=== PATIENT | female | born 1940 | race Caucasian/White ===

== ENCOUNTER 2017-04-28 15:42 | Emergency (ER) | payer OTHER, MEDICARE ==
[~2017-04-28] VITALS: Ht 149.9 cm; Wt 77.3 kg
[~2017-04-28 15:42] MED LIST: ADVAIR HFA120 INHALA IH; ALBUTEROL17 GM IH; ALDACTONE50 MG PO; ALEVE PM CAPLE1 EACH PO; ALPRAZOLAM ER1 MG PO; ALPRAZOLAM1 MG PO; ASPIRIN325 MG PO; ATIVAN1 MG PO; ATORVASTATIN CA20 MG PO; Aldactone PO; BIOFREEZE TP; CEFDINIR300 MG PO; CEFTIN500 MG PO; CHLORDIAZEPOXI1 EACH PO; DUONEB3 ML IH; ECOTRIN325 MG PO; EMS NITROSTAT0.4 M1 SL; FUROSEMIDE40 MG PO; HYDROCHLOROTHIA25 MG PO; HYDROCODON-ACE1 EAC4 PO; HYDROCODON-ACE1 EAC5 PO; IMDUR30 MG PO; IMDUR60 MG PO; ISOSORBIDE MONO30 MG PO; K-DUR20 MEQ PO; KEFLEX500 MG PO; LASIX40 MG PO; LIPITOR40 MG PO; LO-DOSE ASPIRIN81 M2 PO; LOPRESSOR50 MG PO; LOPROX 0.77% CR30 GM TD; LOPROX 0.77% CR30 GM TP; LOTRISONE15 GM TP; METOLAZONE5 MG PO; METOPROLOL TART50 MG PO; MICRO-K,K-DUR,10 MEQ PO; MUCINEX1200 MG PO; NEOSPORIN ANT70.8 GM TP; NIFEDICAL XL30 MG PO; NIFEDIPINE ER30 MG PO; NITROFURANTOIN100 MG PO; PAROXETINE HCL20 MG PO; PREDNISONE10 M1 PO; PREDNISONE50 MG PO; PRILOSEC20.6 MG PO; PROVENTIL,2.5 MG/0.5 AEROSOL; PROVENTIL,2.5 MG/3 M IH; SAVELLA50 MG PO; SIMVASTATIN40 M1 PO; SIMVASTATIN40 MG PO; SPIRIVA RESPIMAT4 GM IH; SPIRIVA1 INHALATI IH; SYMBICORT60 INHALAT IH; SYSTANE BALANCE10 ML IO; TRAMADOL HCL50 MG PO; VENTOLIN HFA18 GM IH; VITAMIN D400 UNI4 PO; ZAROXOLYN,DIULO5 MG PO; ZESTRIL,PRINIVI40 MG PO; ZITHROMAX Z-PA250 MG PO; ZITHROMAX500 MG PO; [UNRECOGNIZED DRUG - OTHER] TP; [UNRECOGNIZED DRUG - REMARK] PO
[2017-04-28 16:27] LABS: HEMATOCRIT 32.2 % (36.0-46.0); MCH 30.6 PG (29.0-34.0); MCHC 33.5 G/DL (30.0-36.0); MCV 91.2 FL (83-99); MEAN PLAT.VOLUME 9.9 uM^3 (9.5-12.4); PLATELET COUNT 248 K/uL (156-360); RBC DIS.WIDTH-CV 12.6 % (11.8-14.6); RBC DIS.WIDTH-SD 41.8 % (39-53); RED BLOOD COUNT 3.53 M/uL (3.80-5.20); WHITE BLOOD COUNT 11.4 K/uL (4.1-10.2)
[2017-04-28 16:32] LABS: VENOUS PCO2 54 mm Hg (41-51)
[2017-04-28 16:33] LABS: CARBON DIOXIDE (BICARBONATE) > 40.0 MEQ/L (20-31)
[2017-04-28 16:40] LABS: CHLORIDE 93 mEq/L (99-109); POTASSIUM 2.5 mEq/L (3.7-5.4); SODIUM 139 mEq/L (136-147)
[2017-04-28 16:42] LABS: GLUCOSE 124 mg/dL (70-99)
[2017-04-28 16:43] LABS: ANION GAP 11 MEQ/L (2-14)
[2017-04-28 16:46] LABS: GFR ESTIMATE (CALCULATED) 57 mL/min/; UREA NITROGEN (BUN) 13 mg/dL (9-23)
[2017-04-28 16:52] LABS: TROP-I INTERPRETATION NEGATIVE; TROPONIN-I 0.04 ng/mL (0.0-0.30)
[2017-04-28 20:44] VITALS: BP 149/78
== END 2017-04-28 20:45 | disposition home or self-care (01) ==
LOC: EME 15:42
PROVIDERS: Emergency Medicine
DX: R60.0 Localized edema (principal); M79.604 Pain in right leg; M79.605 Pain in left leg; I10 Essential (primary) hypertension; E78.5 Hyperlipidemia, unspecified; J44.9 Chronic obstructive pulmonary disease, unspecified; Z99.81 Dependence on supplemental oxygen; Z79.82 Long term (current) use of aspirin; Z87.891 Personal history of nicotine dependence
CPT/HCPCS: 71020; 80048; 82803; 83605; 83880; 84484; 85027; 87040; 93005; 99281; 99285

== ENCOUNTER 2017-08-11 23:10 | Inpatient (IN) | payer OTHER, MEDICARE ==
[~2017-08-11] VITALS: Ht 149.9 cm; Wt 79.9 kg
[2017-08-12 00:33] LABS: BASOPHIL (%) 0.3 % (0-1); EOSINOPHIL (%) 1.3 % (0-5); EOSINOPHIL COUNT 0.1 K/uL (0-0.3); HEMATOCRIT 36.3 % (36.0-46.0); IMMATURE GRANULOCYTE (%) 0.2 % (0.0-0.7); LYMPHOCYTE (%) 19.2 % (15-42); LYMPHOCYTE COUNT 1.9 K/uL (1.0-2.8); MCHC 33.1 G/DL (30.0-36.0); MCV 90.8 FL (83-99); MONOCYTE (%) 10.8 % (3-12); MONOCYTE COUNT 1.1 K/uL (0-0.8); NEUTROPHIL (%) 68.2 % (45-76); NEUTROPHIL COUNT 6.8 K/uL (1.8-6.4); PLATELET COUNT 207 K/uL (156-360); RBC DIS.WIDTH-CV 13.6 % (11.8-14.6); RBC DIS.WIDTH-SD 45.2 % (39-53)
[2017-08-12 00:45] LABS: ALBUMIN 3.7 g/dL (3.2-4.8); CHLORIDE 98 mEq/L (99-109); INTER. NORMALIZED RATIO 1.1; POTASSIUM 3.2 mEq/L (3.7-5.4); SODIUM 138 mEq/L (136-147)
[2017-08-12 00:48] LABS: GLUCOSE 106 mg/dL (70-99); PTT 20.7 SEC (25-37); TOTAL PROTEIN 7.1 g/dL (6.4-8.3)
[2017-08-12 00:49] LABS: TOTAL BILIRUBIN 0.4 mg/dL (0.0-1.0)
[2017-08-12 00:51] LABS: ALKALINE PHOSPHATASE 151 IU/L (3-129); CREATININE 0.8 mg/dL (0.6-1.3); GFR ESTIMATE (CALCULATED) > 59 mL/min/
[2017-08-12 00:52] LABS: UREA NITROGEN (BUN) 10 mg/dL (9-23)
[2017-08-12 00:53] LABS: AST (GOT) 14 IU/L (2-34)
[2017-08-12 00:54] LABS: ALT (GPT) 10 IU/L (3-49)
[2017-08-12 00:55] LABS: LIPASE 7 U/L (1.0-51.0)
[2017-08-12 06:53] LABS: CHLORIDE 99 mEq/L (99-109); POTASSIUM 3.1 mEq/L (3.7-5.4); SODIUM 139 mEq/L (136-147)
[2017-08-12 06:55] LABS: GLUCOSE 111 mg/dL (70-99)
[2017-08-12 06:59] LABS: CREATININE 0.8 mg/dL (0.6-1.3); GFR ESTIMATE (CALCULATED) > 59 mL/min/
[2017-08-12 07:00] LABS: UREA NITROGEN (BUN) 8 mg/dL (9-23)
[2017-08-12 07:32] LABS: HEMATOCRIT 36.3 % (36.0-46.0); MCV 92.1 FL (83-99); RED BLOOD COUNT 3.94 M/uL (3.80-5.20); WHITE BLOOD COUNT 9.9 K/uL (4.1-10.2)
[2017-08-12 07:33] LABS: BASOPHIL (%) 0.3 % (0-1); EOSINOPHIL (%) 1.4 % (0-5); EOSINOPHIL COUNT 0.1 K/uL (0-0.3); IMMATURE GRANULOCYTE (%) 0.3 % (0.0-0.7); MCH 30.5 PG (29.0-34.0); MCHC 33.1 G/DL (30.0-36.0); MONOCYTE (%) 10.9 % (3-12); MONOCYTE COUNT 1.1 K/uL (0-0.8); NEUTROPHIL (%) 67.1 % (45-76); NEUTROPHIL COUNT 6.7 K/uL (1.8-6.4); PLATELET COUNT 189 K/uL (156-360); RBC DIS.WIDTH-CV 13.7 % (11.8-14.6); RBC DIS.WIDTH-SD 46.2 % (39-53)
[2017-08-12 08:31] LABS: MAGNESIUM 1.2 mg/dL (1.3-2.7)
[2017-08-12 11:49] LABS: HEMATOCRIT 33.8 % (36.0-46.0); HEMOGLOBIN 11.3 G/DL (11.9-15.5); MCV 92.3 FL (83-99)
[2017-08-12 13:24] VITALS: BP 151/67
[2017-08-12 14:04] LABS: C DIFF TOXIN POSITIVE (NEGATIVE)
[2017-08-12 15:07] LABS: CHLORIDE 103 MEQ/L (99-109); CREATININE 0.7 MG/DL (0.6-1.3); GFR ESTIMATE (CALCULATED) > 59 mL/min/; GLUCOSE 84 mg/dL (70-99); POTASSIUM 3.2 MEQ/L (3.7-5.4); SODIUM 141 MEQ/L (136-147); UREA NITROGEN (BUN) 7 mg/dL (9-23)
[2017-08-12 16:10] VITALS: BP 166/74
[2017-08-12] MEDS ORDERED: INCRUSE ELLI62.5 MCG IH (17:46)
[2017-08-12] MEDS ORDERED: KLOR-CON M2020 MEQ PO (17:47)
[2017-08-12 18:50] LABS: HEMOGLOBIN 11.3 G/DL (11.9-15.5); MCV 94.5 FL (83-99)
[2017-08-12 19:30] VITALS: BP 154/67
[2017-08-13 06:25] VITALS: BP 162/68
[2017-08-13 06:48] LABS: BASOPHIL (%) 0.3 % (0-1); EOSINOPHIL (%) 4.5 % (0-5); EOSINOPHIL COUNT 0.3 K/uL (0-0.3); HEMATOCRIT 37.2 % (36.0-46.0); HEMOGLOBIN 11.9 G/DL (11.9-15.5); IMMATURE GRANULOCYTE (%) 0.2 % (0.0-0.7); LYMPHOCYTE COUNT 1.4 K/uL (1.0-2.8); MCH 29.5 PG (29.0-34.0); MCV 92.1 FL (83-99); MONOCYTE (%) 11.4 % (3-12); MONOCYTE COUNT 0.7 K/uL (0-0.8); NEUTROPHIL (%) 59.6 % (45-76); NEUTROPHIL COUNT 3.4 K/uL (1.8-6.4); PLATELET COUNT 185 K/uL (156-360); RBC DIS.WIDTH-CV 13.6 % (11.8-14.6); RBC DIS.WIDTH-SD 46.6 % (39-53); RED BLOOD COUNT 4.04 M/uL (3.80-5.20); WHITE BLOOD COUNT 5.8 K/uL (4.1-10.2)
[2017-08-13 07:14] LABS: CHLORIDE 101 MEQ/L (99-109); CREATININE 0.7 MG/DL (0.6-1.3); GFR ESTIMATE (CALCULATED) > 59 mL/min/; GLUCOSE 97 mg/dL (70-99); POTASSIUM 3.3 MEQ/L (3.7-5.4); SODIUM 142 MEQ/L (136-147); UREA NITROGEN (BUN) 5 mg/dL (9-23)
[2017-08-13 08:04] VITALS: BP 140/58
[2017-08-13 13:05] VITALS: BP 168/88
[2017-08-13 17:13] VITALS: BP 159/67
[2017-08-13 19:42] VITALS: BP 152/67
[2017-08-14 04:34] VITALS: BP 147/65
[2017-08-14 07:47] VITALS: BP 150/60
[2017-08-14 10:20] LABS: HEMATOCRIT 36.2 % (36.0-46.0); HEMOGLOBIN 11.7 G/DL (11.9-15.5); MCHC 32.3 G/DL (30.0-36.0); MCV 92.8 FL (83-99); PLATELET COUNT 212 K/uL (156-360); RBC DIS.WIDTH-CV 13.6 % (11.8-14.6); RBC DIS.WIDTH-SD 46.3 % (39-53); WHITE BLOOD COUNT 5.4 K/uL (4.1-10.2)
[2017-08-14 10:42] LABS: CHLORIDE 97 MEQ/L (99-109); POTASSIUM 3.5 MEQ/L (3.7-5.4); SODIUM 135 MEQ/L (136-147)
[2017-08-14 10:47] LABS: CREATININE 0.8 MG/DL (0.6-1.3); GFR ESTIMATE (CALCULATED) > 59 mL/min/; GLUCOSE 113 mg/dL (70-99); UREA NITROGEN (BUN) 5 mg/dL (9-23)
[2017-08-14 12:30] VITALS: BP 161/70
[2017-08-14 15:24] VITALS: BP 148/66
[2017-08-14 20:00] VITALS: BP 148/62
[2017-08-15 00:04] VITALS: BP 161/71
[2017-08-15 13:09] LABS: CHLORIDE 99 MEQ/L (99-109); CREATININE 0.8 MG/DL (0.6-1.3); GFR ESTIMATE (CALCULATED) > 59 mL/min/; GLUCOSE 113 mg/dL (70-99); POTASSIUM 4.1 MEQ/L (3.7-5.4); SODIUM 138 MEQ/L (136-147); UREA NITROGEN (BUN) 11 mg/dL (9-23)
[2017-08-15 13:21] VITALS: BP 152/56
[2017-08-15 13:32] LABS: MAGNESIUM 1.4 mg/dl (1.3-2.7)
[2017-08-15 16:29] VITALS: BP 130/56
[2017-08-15 20:30] VITALS: BP 144/60
[2017-08-16 00:24] VITALS: BP 165/70
[2017-08-16 09:48] VITALS: BP 151/65
[2017-08-16 11:43] VITALS: BP 136/54
[2017-08-16] MEDS ORDERED: FLORASTOR250 MG PO (11:54)
== END 2017-08-16 15:29 | disposition home or self-care (01) | DRG 372 ==
LOC: EME 23:10 → EDOF 08-12 03:12 → ENRESERV 08-12 03:13 → 5WEST 08-12 12:53 → EDPENDDISTM 08-16 → EDPENDDISDT 08-16 → 5WEST 08-16 15:29
PROVIDERS: Emergency Medicine; Hospitalist; Internal Medicine; Nurse Practitioner Adult Health; Physician Assistant
DX: A04.72 Enterocolitis due to Clostridium difficile, not specified as recurrent (principal); J44.0 Chronic obstructive pulmonary disease with (acute) lower respiratory infection; G45.9 Transient cerebral ischemic attack, unspecified; I25.10 Atherosclerotic heart disease of native coronary artery without angina pectoris; I11.0 Hypertensive heart disease with heart failure; K21.9 Gastro-esophageal reflux disease without esophagitis; M79.7 Fibromyalgia; E78.5 Hyperlipidemia, unspecified; E87.6 Hypokalemia; I50.9 Heart failure, unspecified; G83.9 Paralytic syndrome, unspecified; Z99.81 Dependence on supplemental oxygen; Z96.659 Presence of unspecified artificial knee joint; Z90.49 Acquired absence of other specified parts of digestive tract; Z86.73 Personal history of transient ischemic attack (TIA), and cerebral infarction without residual deficits; I25.2 Old myocardial infarction; Z72.0 Tobacco use; Z80.49 Family history of malignant neoplasm of other genital organs; Z82.49 Family history of ischemic heart disease and other diseases of the circulatory system
CPT/HCPCS: 74177; 80048; 80048 91; 80053; 83690; 83735; 85014; 85018; 85025; 85025 91; 85027; 85610; 85730; 86850; 86900; 86901; 87177; 87329; 87493; 87506; 94640; 94640 76; 94760; 94799; 99202; 99281; 99285; G0378; G8978 GP CJ; G8979 GP CH; G8987 GO CJ; G8988 CI; J3475; J7030

== ENCOUNTER 2017-11-27 08:28 | Inpatient (IN) | payer OTHER, MEDICARE ==
[~2017-11-27] VITALS: Ht 149.9 cm; Wt 78.1 kg
[~2017-11-27 08:28] MED LIST changes: +FLORASTOR250 MG PO; +INCRUSE ELLI62.5 MCG IH; +KLOR-CON M2020 MEQ PO
[2017-11-27 09:16] LABS: HEMATOCRIT 38.3 % (36.0-46.0); HEMOGLOBIN 12.8 G/DL (11.9-15.5); MCH 30.6 PG (29.0-34.0); MCHC 33.4 G/DL (30.0-36.0); MCV 91.6 FL (83-99); PLATELET COUNT 207 K/uL (156-360); RBC DIS.WIDTH-SD 43.1 % (39-53); RED BLOOD COUNT 4.18 M/uL (3.80-5.20); WHITE BLOOD COUNT 10.4 K/uL (4.1-10.2)
[2017-11-27 09:27] LABS: CHLORIDE 95 mEq/L (99-109); POTASSIUM 3.3 mEq/L (3.7-5.4); SODIUM 136 mEq/L (136-147)
[2017-11-27 09:29] LABS: GLUCOSE 128 mg/dL (70-99); TOTAL PROTEIN 7.8 g/dL (6.4-8.3)
[2017-11-27 09:31] LABS: TOTAL BILIRUBIN 0.8 mg/dL (0.0-1.0)
[2017-11-27 09:33] LABS: ALKALINE PHOSPHATASE 205 IU/L (3-129); CREATININE 1.4 mg/dL (0.6-1.3); GFR ESTIMATE (CALCULATED) 39 mL/min/
[2017-11-27 09:34] LABS: UREA NITROGEN (BUN) 17 mg/dL (9-23)
[2017-11-27 09:34] LABS: APPEARANCE TURBID ((CLEAR)); BILIRUBIN NEGATIVE; BLOOD MODERATE; COLOR YELLOW ((YELLOW)); GLUCOSE (STRIP) NEGATIVE; KETONES NEGATIVE; LEUKOCYTES LARGE; NITRITE POSITIVE; PROTEIN (STRIP) 100; SPECIFIC GRAVITY 1.015 (1.000-1.030); UROBILINOGEN 0.2 MG/DL (0.2-1.0)
[2017-11-27 09:35] LABS: AST (GOT) 36 IU/L (2-34)
[2017-11-27 09:36] LABS: ALT (GPT) 16 IU/L (3-49)
[2017-11-27 09:37] LABS: TROP-I INTERPRETATION NEGATIVE; TROPONIN-I 0.05 ng/mL (0.0-0.30)
[2017-11-27 09:50] LABS: UCUL ADDED? YES; WHITE BLOOD CELLS TNTC /HPF (0-5)
[2017-11-27] MEDS ORDERED: TYLENOL EXTRA500 MG PO (13:35)
[2017-11-27 17:08] VITALS: BP 137/57
[2017-11-27 17:28] LABS: C DIFF TOXIN POSITIVE (NEGATIVE)
[2017-11-27 23:50] VITALS: BP 131/66
[2017-11-28 03:37] VITALS: BP 121/76
[2017-11-28 07:27] VITALS: BP 171/72
[2017-11-28 09:22] LABS: HEMOGLOBIN 13.5 G/DL (11.9-15.5); MCH 30.3 PG (29.0-34.0); MCHC 32.9 G/DL (30.0-36.0); MCV 92.1 FL (83-99); PLATELET COUNT 153 K/uL (156-360); RBC DIS.WIDTH-CV 13.3 % (11.8-14.6); RBC DIS.WIDTH-SD 45.3 % (39-53); RED BLOOD COUNT 4.45 M/uL (3.80-5.20); WHITE BLOOD COUNT 11.8 K/uL (4.1-10.2)
[2017-11-28 09:32] LABS: CHLORIDE 101 MEQ/L (99-109); GFR ESTIMATE (CALCULATED) 57 mL/min/; GLUCOSE 118 mg/dL (70-99); POTASSIUM 3.6 MEQ/L (3.7-5.4); SODIUM 139 MEQ/L (136-147); UREA NITROGEN (BUN) 13 mg/dL (9-23)
[2017-11-28 12:01] VITALS: BP 187/76
[2017-11-28 16:00] VITALS: BP 120/55
[2017-11-28 19:29] VITALS: BP 130/58
[2017-11-29 00:18] VITALS: BP 137/61
[2017-11-29 04:05] VITALS: BP 168/64
[2017-11-29 06:58] LABS: CHLORIDE 97 MEQ/L (99-109); CREATININE 0.9 MG/DL (0.6-1.3); GFR ESTIMATE (CALCULATED) > 59 mL/min/; GLUCOSE 132 mg/dL (70-99); POTASSIUM 3.1 MEQ/L (3.7-5.4); SODIUM 136 MEQ/L (136-147); UREA NITROGEN (BUN) 9 mg/dL (9-23)
[2017-11-29 08:21] VITALS: BP 144/56
[2017-11-29 08:24] LABS: BASOPHIL (%) 0.3 % (0-1); EOSINOPHIL (%) 0.3 % (0-5); HEMATOCRIT 36.3 % (36.0-46.0); IMMATURE GRANULOCYTE (%) 0.4 % (0.0-0.7); LYMPHOCYTE (%) 10.9 % (15-42); LYMPHOCYTE COUNT 1.4 K/uL (1.0-2.8); MCHC 33.1 G/DL (30.0-36.0); MCV 90.8 FL (83-99); MONOCYTE (%) 8.4 % (3-12); MONOCYTE COUNT 1.1 K/uL (0-0.8); NEUTROPHIL (%) 79.7 % (45-76); NEUTROPHIL COUNT 10.3 K/uL (1.8-6.4); PLATELET COUNT 175 K/uL (156-360); RBC DIS.WIDTH-CV 13.2 % (11.8-14.6); RBC DIS.WIDTH-SD 43.9 % (39-53); WHITE BLOOD COUNT 12.9 K/uL (4.1-10.2)
[2017-11-29 08:43] LABS: MAGNESIUM 1.3 mg/dl (1.3-2.7)
[2017-11-29 12:20] VITALS: BP 112/54
[2017-11-29 15:09] VITALS: BP 133/62
[2017-11-29 20:14] VITALS: BP 160/69
[2017-11-30 00:15] VITALS: BP 147/66
[2017-11-30 03:48] VITALS: BP 160/69
[2017-11-30 07:41] LABS: HEMATOCRIT 30.5 % (36.0-46.0); MCH 29.9 PG (29.0-34.0); MCHC 32.8 G/DL (30.0-36.0); MCV 91.3 FL (83-99); PLATELET COUNT 174 K/uL (156-360); RBC DIS.WIDTH-CV 12.8 % (11.8-14.6); RBC DIS.WIDTH-SD 42.8 % (39-53); RED BLOOD COUNT 3.34 M/uL (3.80-5.20)
[2017-11-30 07:46] LABS: CHLORIDE 99 MEQ/L (99-109); CREATININE 0.8 MG/DL (0.6-1.3); GFR ESTIMATE (CALCULATED) > 59 mL/min/; GLUCOSE 118 mg/dL (70-99); POTASSIUM 3.1 MEQ/L (3.7-5.4); SODIUM 140 MEQ/L (136-147); UREA NITROGEN (BUN) 8 mg/dL (9-23)
[2017-11-30 08:00] VITALS: BP 158/60
[2017-11-30 09:07] LABS: MAGNESIUM 1.5 mg/dl (1.3-2.7)
[2017-11-30 12:25] LABS: HEMATOCRIT 32.2 % (36.0-46.0); HEMOGLOBIN 10.6 G/DL (11.9-15.5); MCV 91.5 FL (83-99)
[2017-11-30 16:11] VITALS: BP 145/66
[2017-11-30 20:40] VITALS: BP 120/57
[2017-12-01] VITALS (7 sets, daily range): BP systolic 138–154; BP diastolic 57–79
[2017-12-01 07:24] LABS: CHLORIDE 101 MEQ/L (99-109); CREATININE 0.9 MG/DL (0.6-1.3); GFR ESTIMATE (CALCULATED) > 59 mL/min/; GLUCOSE 111 mg/dL (70-99); IRON 51 MCG/DL (35-150); MAGNESIUM 1.6 mg/dl (1.3-2.7); SODIUM 137 MEQ/L (136-147); TRANSFERRIN (TIBC) 183.8 mg/dL (215-380); TRANSFERRIN SATUR. 28 % (20-55); UREA NITROGEN (BUN) 10 mg/dL (9-23)
[2017-12-01 07:28] LABS: POTASSIUM 4.2 MEQ/L (3.7-5.4)
[2017-12-01 08:42] LABS: FERRITIN 146 NG/ML (10-291)
[2017-12-02 03:30] VITALS: BP 141/66
[2017-12-02 08:17] VITALS: BP 157/67
[2017-12-02 11:13] VITALS: BP 140/68
[2017-12-02] MEDS ORDERED: BACTRIM,SEPT1 TABLET PO (12:09)
[2017-12-02] MEDS ORDERED: VANCOCIN HCL125 MG PO (12:14)
== END 2017-12-02 15:45 | disposition home health service (06) | DRG 372 ==
LOC: EME 08:28 → EDOF 12:26 → ENRESERV 12:28 → EDOF 12:54 → 5SOUTH 12:54 → EDOF 12:54 → ENRESERV 13:10 → 5SOUTH 14:19 → ENPENDDIS 12-02 12:18 → 5SOUTH 12-02 15:45
PROVIDERS: Emergency Medicine Emergency Medical Services; Hospitalist; Internal Medicine; Physician Assistant Medical
DX: A04.71 Enterocolitis due to Clostridium difficile, recurrent (principal); N12 Tubulo-interstitial nephritis, not specified as acute or chronic; N17.9 Acute kidney failure, unspecified; I11.0 Hypertensive heart disease with heart failure; I50.32 Chronic diastolic (congestive) heart failure; E83.42 Hypomagnesemia; Z99.81 Dependence on supplemental oxygen; J44.9 Chronic obstructive pulmonary disease, unspecified; B96.20 Unspecified Escherichia coli [E. coli] as the cause of diseases classified elsewhere; R21 Rash and other nonspecific skin eruption; E87.6 Hypokalemia; I25.10 Atherosclerotic heart disease of native coronary artery without angina pectoris; E78.5 Hyperlipidemia, unspecified; D64.9 Anemia, unspecified; G89.29 Other chronic pain; M54.9 Dorsalgia, unspecified; F41.9 Anxiety disorder, unspecified; F32.9 Major depressive disorder, single episode, unspecified; Z96.653 Presence of artificial knee joint, bilateral; I25.2 Old myocardial infarction; Z91.81 History of falling; Z79.82 Long term (current) use of aspirin; Z86.73 Personal history of transient ischemic attack (TIA), and cerebral infarction without residual deficits; Z87.891 Personal history of nicotine dependence
CPT/HCPCS: 71045; 71046; 80048; 80053; 81003; 82728; 83540; 83605; 83735; 83880; 84466; 84484; 85014; 85018; 85025; 85027; 87040; 87077; 87086; 87186; 87493; 93005; 94640; 94640 76; 94799; 97530 GP; 99202; 99281; 99285; J0290; J0696; J1650; J2543; J3475; J3480; J7030; J7040; J7050

== ENCOUNTER → 2018-02-07 | Outpatient (CLI) | payer OTHER, MEDICARE ==
[~2018-02-07] MED LIST changes: +BACTRIM,SEPT1 TABLET PO; +TYLENOL EXTRA500 MG PO; +VANCOCIN HCL125 MG PO
== END | disposition home or self-care (01) ==
LOC: AMB 08:27
DX: A04.71 Enterocolitis due to Clostridium difficile, recurrent (principal)
CPT/HCPCS: 71045; G0455